=== PATIENT | female | born 1955 | race Caucasian/White ===

== ENCOUNTER → 2016-11-16 | Outpatient (CLI) | payer OTHER ==
[~2016-11-16] VITALS: Ht 177.8 cm; Wt 86.2 kg
[2016-11-16 11:05] VITALS: BP 120/78
--- NOTE | 2016-11-16 12:56 | RAD ---
Indication suspect mass left breast. Note is made of recent examinations of the left breast and the recommendation for sampling of a mass at the 12:00 position, 4 cm from the nipple. Recent breast examinations were reviewed. Preliminary images were obtained and the well-defined 8 mm mass at the 12:00 position of the left breast was identified. [employer] ultrasound images were saved. Image guided tissue sampling was discussed with the patient. The risks of infection and bleeding were outlined. The patient understood the risks associated with the procedure and wished to proceed. The skin was prepped and draped in the routine fashion. Local anesthesia was accomplished with 1% lidocaine. Initially an 18-gauge needle was introduced into the mass. Upon introduction of the needle into the mass, and aspiration of approximately 0.1 to 0.2 cc of brownish tinged there was complete collapse of the mass compatible with a simple cyst.. No residual fluid collection or abnormality was seen. IMPRESSION: Aspiration of a simple cyst at the 12:00 position left breast
== END | disposition home or self-care (01) ==
LOC: EDUNIT# 10:00 → US 10:37
PROVIDERS: ATTEND Physician Assistant
DX: N63 Unspecified lump in breast (principal)
CPT/HCPCS: 19000; 76942; C1713